=== PATIENT | male | born 1990 | race Caucasian/White ===

== ENCOUNTER 2019-07-18 17:12 | Emergency (ER) | payer MEDICAID ==
[~2019-07-18] VITALS: Ht 172.7 cm; Wt 80.0 kg
[~2019-07-18 17:12] MED LIST: ALB0.5UD IH; ARIP15TA3 PO; CLON-528 PO; HYDR-4383 PO; LIDOcaine 1% W/epiNEPHrine 1:100,000 20ml vial ONE; QUET200T5 PO; SILV20CR13 TOP
[2019-07-18 17:15] VITALS: BP 145/88
[2019-07-18] MEDS ORDERED: PENI500T2 PO (19:07)
== END 2019-07-18 19:39 | disposition home or self-care (01) ==
LOC: ER 17:12
DX: K04.7 Periapical abscess without sinus (principal); J45.909 Unspecified asthma, uncomplicated; G89.29 Other chronic pain; F20.9 Schizophrenia, unspecified; M06.9 Rheumatoid arthritis, unspecified; F12.90 Cannabis use, unspecified, uncomplicated; F15.90 Other stimulant use, unspecified, uncomplicated; F10.99 Alcohol use, unspecified with unspecified alcohol-induced disorder; Z86.14 Personal history of Methicillin resistant Staphylococcus aureus infection; Z98.890 Other specified postprocedural states; Z59.0 Homelessness; Z79.899 Other long term (current) drug therapy; Y90.9 Presence of alcohol in blood, level not specified
CPT/HCPCS: 41800; 99283

== ENCOUNTER 2020-10-13 18:05 | Emergency (ER) | payer MEDICAID ==
[~2020-10-13] VITALS: Ht 172.7 cm; Wt 65.1 kg
[~2020-10-13 18:05] MED LIST changes: -LIDOcaine 1% W/epiNEPHrine 1:100,000 20ml vial ONE
[2020-10-13 18:15] VITALS: BP 125/85
[2020-10-13] MEDS ORDERED: sulfamethoxazole/trimethoprim DS (800/160mg) tablet PO ONE (19:25)
[2020-10-13] MEDS ORDERED: cephalexin 250mg capsule PO ONE (19:25)
[2020-10-13] MEDS ORDERED: SULF1TAB49 PO (19:36)
[2020-10-13] MEDS ORDERED: CEPH750C9 PO (19:36)
== END 2020-10-13 19:45 | disposition home or self-care (01) ==
LOC: ER 18:05
DX: L03.116 Cellulitis of left lower limb (principal); J45.909 Unspecified asthma, uncomplicated; G89.29 Other chronic pain; F20.9 Schizophrenia, unspecified; F12.90 Cannabis use, unspecified, uncomplicated; F15.90 Other stimulant use, unspecified, uncomplicated; Z86.14 Personal history of Methicillin resistant Staphylococcus aureus infection; Z98.890 Other specified postprocedural states; Z72.89 Other problems related to lifestyle; Z59.0 Homelessness; Z79.2 Long term (current) use of antibiotics; Z79.899 Other long term (current) drug therapy
CPT/HCPCS: 10060; 99283

== ENCOUNTER 2020-11-10 20:47 | Emergency (ER) | payer MEDICAID ==
[~2020-11-10] VITALS: Ht 172.7 cm; Wt 59.1 kg
[~2020-11-10 20:47] MED LIST changes: +CEPH750C9 PO
[2020-11-10] MEDS ORDERED: DOXY100C2 PO (22:50)
[2020-11-10] MEDS ORDERED: ibuprofen tablet 400 MG TABLET PO ONE (22:50)
[2020-11-10 22:58] VITALS: BP 132/98
== END 2020-11-10 23:00 | disposition home or self-care (01) ==
LOC: ER 20:48
DX: M79.641 Pain in right hand (principal); M79.89 Other specified soft tissue disorders; J45.909 Unspecified asthma, uncomplicated; G89.29 Other chronic pain; F20.9 Schizophrenia, unspecified; F12.90 Cannabis use, unspecified, uncomplicated; F15.90 Other stimulant use, unspecified, uncomplicated; Z98.890 Other specified postprocedural states; Z86.14 Personal history of Methicillin resistant Staphylococcus aureus infection; Z72.89 Other problems related to lifestyle; Z59.0 Homelessness; Z79.2 Long term (current) use of antibiotics; Z79.899 Other long term (current) drug therapy
CPT/HCPCS: 99283

== ENCOUNTER 2021-04-27 03:28 | Emergency (ER) | payer MEDICAID ==
[~2021-04-27] VITALS: Ht 172.7 cm; Wt 59.1 kg
[2021-04-27] MEDS ORDERED: SULF1TAB49 PO (04:49)
[2021-04-27] MEDS ORDERED: ondansetron 4mg rapidly disintigrating tab PO ONE (04:50)
[2021-04-27] MEDS ORDERED: sulfamethoxazole/trimethoprim DS (800/160mg) tablet PO ONE (04:50)
[2021-04-27 05:21] VITALS: BP 137/68
== END 2021-04-27 05:23 | disposition home or self-care (01) ==
LOC: ER 03:29
DX: L03.116 Cellulitis of left lower limb (principal); J45.909 Unspecified asthma, uncomplicated; Z87.81 Personal history of (healed) traumatic fracture; F12.10 Cannabis abuse, uncomplicated; F15.10 Other stimulant abuse, uncomplicated; Z79.899 Other long term (current) drug therapy
CPT/HCPCS: 99283

== ENCOUNTER 2021-04-29 20:21 | Emergency (ER) | payer MEDICAID ==
[~2021-04-29] VITALS: Ht 172.7 cm; Wt 59.0 kg
[~2021-04-29 20:21] MED LIST changes: +SULF1TAB49 PO
[2021-04-29 20:32] VITALS: BP 128/74
== END 2021-04-30 00:19 | disposition left against medical advice (07) ==
LOC: ER 20:23
DX: Z53.21 Procedure and treatment not carried out due to patient leaving prior to being seen by health care provider (principal)

== ENCOUNTER 2022-01-11 19:20 | Inpatient (IN) | payer MEDICAID ==
[~2022-01-11] VITALS: Ht 172.7 cm; Wt 68.2 kg
[~2022-01-11 19:20] MED LIST changes: -SULF1TAB49 PO
[2022-01-11] MEDS ORDERED: ketorolac tromethamine 15mg/ml inj. IV ONE (19:50)
[2022-01-11] MEDS ORDERED: acetaminophen 325mg tablet PO ONE (19:50)
[2022-01-11] MEDS ORDERED: normal saline 1000ML IV soln IV ONE (19:50)
--- NOTE | 2022-01-11 20:03 | NUR ---
Pt to CT. [place], no impending distress. PIV site c/d/i s complication
[2022-01-11 20:04] LABS: BASOPHILS % (AUTO) 0.1 % (0-1); EOSINOPHILS % (AUTO) 0.1 % (0-6); HEMATOCRIT 38.4 % (42.0-52.0); LYMPHOCYTES # (AUTO) 0.5 X10'3 (1.1-4.8); LYMPHOCYTES % (AUTO) 3.6 % (21-51); MEAN CORPUSCULAR HEMOGLOBIN 30.5 PG (27.0-31.0); MEAN CORPUSCULAR HGB CONC 33.9 g/dL (33.0-36.5); MEAN CORPUSCULAR VOLUME 89.9 FL (78-98); MEAN PLATELET VOLUME 8.6 FL (7.4-10.4); MONOCYTES % (AUTO) 7.1 % (2-12); NEUTROPHILS # (AUTO) 12.1 X10'3 (1.8-7.7); NEUTROPHILS % (AUTO) 89.1 % (42-75); PLATELET COUNT 233 X10'3 (140-440); RED BLOOD COUNT 4.27 X10'6 (4.70-6.10); RED CELL DISTRIBUTION WIDTH 13.6 % (11.5-14.5); WHITE BLOOD COUNT 13.6 X10'3 (4.5-11.0)
[2022-01-11 20:18] LABS: ALANINE AMINOTRANSFERASE 22 U/L (12-78); ALBUMIN 3.7 G/DL (3.4-5.0); ALKALINE PHOSPHATASE 58 IU/L (46-116); ANION GAP 7 (8-16); ASPARTATE AMINO TRANSFERASE 17 U/L (10-37); BILIRUBIN,TOTAL 0.7 MG/DL (0.1-1.0); BLOOD UREA NITROGEN 14 MG/DL (7-18); BUN/CREATININE RATIO 12.7 (5.4-32.0); CALCIUM 8.3 MG/DL (8.5-10.1); CHLORIDE 103 MMOL/L (99-107); GLUCOSE 123 MG/DL (70-104); POTASSIUM 3.6 MMOL/L (3.5-5.1); SODIUM 138 MMOL/L (135-145); TOTAL CARBON DIOXIDE 28.4 MMOL/L (24-32); TOTAL PROTEIN 7.4 G/DL (6.4-8.2); eGFR 77 ML/MIN
[2022-01-11 20:20] LABS: D-DIMER 0.22 MG/L FEU (0-0.50)
[2022-01-11 20:30] LABS: CKMB RELATIVE INDEX 1.4 RATIO (0-2.5); CREATINE KINASE 125 U/L (39-308); ETHANOL < 0.010 GM/DL (0.0-0.010); MAGNESIUM 1.7 MG/DL (1.5-2.4)
--- NOTE | 2022-01-11 21:02 | NUR ---
Pt pink, alert, no acute/resp distress. Bed in lowest position, wheels locked, rail 2/2 up. Pt laying supine. Pt able to reposition self prn. PIV site c/d/i s complicaiton or s/s hematoma or infiltration
[2022-01-11] MEDS ORDERED: CefTRIAXone 2gm/NS 100ml IVPB 100 ML IV ONE (21:10)
[2022-01-11 21:24] LABS: LACTIC SEPSIS 1.8 MMOL/L (0.4-2.0)
[2022-01-11] MEDS ORDERED: magnesium Cl slow-release 64mg tablet PO PRN (21:30)
[2022-01-11] MEDS ORDERED: magnesium hydroxide 30ml (MOM) UD suspension PO PRN (21:30)
[2022-01-11] MEDS ORDERED: normal saline 1000ml 1,000 ML IV SCH (21:30)
[2022-01-11] MEDS ORDERED: potassium CL 10mEq/100ml bag 100 ML IV PRN (21:30)
[2022-01-11] MEDS ORDERED: mag hydrox/Alum hydrox/simeth 30ml oral suspension PO PRN (21:30)
[2022-01-11] MEDS ORDERED: magnesium 2GM in 50ml NS 50 ML IV PRN (21:30)
[2022-01-11] MEDS ORDERED: potassium Cl 20 mEq SR tablet PO PRN ×2 (21:30)
[2022-01-11] MEDS ORDERED: magnesium 4gm in 100ml NS 100 ML IV PRN (21:30)
[2022-01-11] MEDS ORDERED: acetaminophen 325mg tablet PO PRN ×2 (21:30)
[2022-01-11] MEDS ORDERED: albuterol 2.5 MG/3 ML nebule NEB PRN (21:35)
[2022-01-11] MEDS: ondansetron/PF 4mg/2ml inj IV PRN (23:26)
[2022-01-11] MEDS: morphine 2 MG/ML inj. syringe IV PRN (23:28)
--- NOTE | 2022-01-11 23:29 | NUR ---
Pt medicated IV pain meds and Zofran versus PO pain meds due to n/v. PIV site c/d/i s complication or adverse reaction. Bed in lowest position, wheels locked. CM, NIBP, Pulse Ox in place. Pt laying supine, able to reposition self prn.
[2022-01-12] VITALS (7 sets, daily range): BP systolic 88–129; BP diastolic 50–85
--- NOTE | 2022-01-12 01:00 | NUR ---
Paged Pt doc for continued tachycardia. Advised me she will order Cardizem.
[2022-01-12] MEDS ORDERED: diltiazem-NS 100mg/100ml 100 ML IV SCH (02:00)
--- NOTE | 2022-01-12 02:00 | NUR ---
Paged in house doc to remind to order cardizem for tachycardia.
--- NOTE | 2022-01-12 03:06 | NUR ---
Pt pink, alert, no acute/resp distress. Bed in lowest position, wheels locked, rail 2/2 up. Pt laying supine. Pt able to reposition self prn. PIV site c/d/i s complicaiton or s/s hematoma or infiltration. Cardizem infusing as ordered.
--- NOTE | 2022-01-12 03:30 | NUR ---
Pt [place], no acute/resp distress. Pt remains tachy. PIV site c/d/i s complication.
[2022-01-12 04:59] LABS: BASOPHILS % (AUTO) 0.1 % (0-1); EOSINOPHILS % (AUTO) 0 % (0-6); HEMATOCRIT 35.3 % (42.0-52.0); HEMOGLOBIN 12.1 g/dl (14.0-17.9); LYMPHOCYTES # (AUTO) 0.8 X10'3 (1.1-4.8); MEAN CORPUSCULAR HEMOGLOBIN 30.6 PG (27.0-31.0); MEAN CORPUSCULAR HGB CONC 34.2 g/dL (33.0-36.5); MEAN CORPUSCULAR VOLUME 89.5 FL (78-98); MONOCYTES # (AUTO) 1.5 X10'3 (0-0.9); MONOCYTES % (AUTO) 9.9 % (2-12); NEUTROPHILS # (AUTO) 12.8 X10'3 (1.8-7.7); PLATELET COUNT 198 X10'3 (140-440); RED BLOOD COUNT 3.94 X10'6 (4.70-6.10); RED CELL DISTRIBUTION WIDTH 13.4 % (11.5-14.5); WHITE BLOOD COUNT 15.1 X10'3 (4.5-11.0)
--- NOTE | 2022-01-12 05:01 | NUR ---
STEWART Chaudhry May titrate Cardizem despite order stating must contact doctor to titrate. Pt Cardizem at this time is titrated at 10mg/hr. PIV site c/d/i s complication or adverse. Bed in lowest position, rails 2/2 up, wheels locked, call cruz in reach. No goal parameters given heart rate, or Blood Pressure.
[2022-01-12 05:02] LABS: ALANINE AMINOTRANSFERASE 17 U/L (12-78); ALBUMIN 2.8 G/DL (3.4-5.0); ALBUMIN/GLOBULIN RATIO 0.9 (1.1-1.5); ALKALINE PHOSPHATASE 45 IU/L (46-116); ANION GAP 9 (8-16); ASPARTATE AMINO TRANSFERASE 14 U/L (10-37); BILIRUBIN,TOTAL 0.6 MG/DL (0.1-1.0); BLOOD UREA NITROGEN 15 MG/DL (7-18); BUN/CREATININE RATIO 14.2 (5.4-32.0); CALCIUM 7.1 MG/DL (8.5-10.1); CHLORIDE 104 MMOL/L (99-107); CREATININE 1.06 MG/DL (0.60-1.10); GLUCOSE 103 MG/DL (70-104); POTASSIUM 3.3 MMOL/L (3.5-5.1); SODIUM 136 MMOL/L (135-145); TOTAL CARBON DIOXIDE 23.3 MMOL/L (24-32); eGFR 80 ML/MIN
--- NOTE | 2022-01-12 05:23 | NUR ---
See IV drip documentation for titration.
--- NOTE | 2022-01-12 05:30 | NUR ---
Paged Dr. Chaudhry to advise Ashley camacho out and pt remains tachy.
[2022-01-12] MEDS ORDERED: atenolol 25mg tablet PO ONE (06:00)
--- NOTE | 2022-01-12 06:04 | NUR ---
No acute/resp distress. PIV site c/d/i s complication or adverse reaction. Bed in lowest position, wheels locked. CM, NIBP, Pulse Ox in place. Pt laying supine, able to reposition self prn. Hand off report to day shift RN.
--- NOTE | 2022-01-12 06:44 | NUR ---
attempted to call report to PCU, no assigned RN at this time.
--- NOTE | 2022-01-12 06:44 | NUR ---
Dr. Chaudhry made aware about patient's bp 94/62mmhg, held cardizem drip and atenolol held.Dr. Chaudhry ok'd.ordered to administer atenolol 12.5mg when sbp greater than 100.
[2022-01-12] MEDS ORDERED: CefTRIAXone 2gm/NS 100ml IVPB 100 ML IV SCH (08:00)
[2022-01-12] MEDS: K and/or MAG REPLACEMENT MC SCH ×2 (08:00→20:00)
[2022-01-12] MEDS ORDERED: doxycycline inj 100 MG in normal saline 100ml IV soln 100 ML IV SCH (08:00)
[2022-01-12] MEDS: nicotine 21mg patch - 24 hr TD SCH (08:44)
[2022-01-12] MEDS: morphine 2 MG/ML inj. syringe IV PRN (08:44)
--- NOTE | 2022-01-12 08:55 | NUR ---
Paged Dr. Serra U Stefano RN ext [phone]. RE: Hilton Yuen. Patient already here from ER. We got positive blood culture result today. Patient already on Rocephin, Vibramycin, and Zithromax. SBP still on the o0's HR 106-107. He has no maintainance IV fluid
--- NOTE | 2022-01-12 08:59 | NUR ---
skin care technician paged
[2022-01-12] MEDS: azithromycin/NS 500mg/250ml 250 ML IV SCH (09:55)
[2022-01-12] MEDS ORDERED: normal saline 1000ml 1,000 ML IV ONE (10:20)
--- NOTE | 2022-01-12 11:01 | NUR ---
Paged Dr. Serra Message: PCU Stefano QUAN ext [phone] RE: Hilton Yuen. Patient unable to pee, has pressure on lower abdomen. Bladder scan 385ml, do you want me to do straight cath or orantes?
[2022-01-12] MEDS: heparin, porcine 5000 units/ml vial SQ SCH ×2 (11:07→19:37)
[2022-01-12 11:33] LABS: CLARITY,URINE CLEAR (Clear); COLOR,URINE YELLOW (Yellow); GLUCOSE, URINE NEGATIVE (Neg); KETONES,URINE TRACE mg/dl (Neg); LEUKOCYTE ESTERASE ,URINE NEGATIVE (Neg); NITRITES, URINE NEGATIVE (Neg); OCCULT BLOOD,URINE NEGATIVE (Neg); PROTEIN,URINE NEGATIVE (Neg); UROBILINOGEN,URINE 0.2 E.U/dL (0.2-1.0)
[2022-01-12 11:38] LABS: UA COLLECTION TYPE CLN CATCH MIDSTREAM
[2022-01-12 11:45] LABS: URINE AMPHETAMINE SCREEN POSITIVE (Neg); URINE BARBITUATE SCREEN NEGATIVE (Neg); URINE BENZODIAZEPINES SCREEN NEGATIVE (Neg); URINE CANNABINOID SCREEN POSITIVE (Neg); URINE COCAINE SCREEN NEGATIVE (Neg); URINE METHADONE SCREEN NEGATIVE (Neg); URINE OPIATE SCREEN POSITIVE (Neg); URINE PHENCYCLIDINE SCREEN NEGATIVE (Neg)
[2022-01-12] MEDS ORDERED: NO HOME MEDS (11:49)
[2022-01-12] MEDS: normal saline 1000ml 1,000 ML IV SCH ×2 (12:01→20:20)
[2022-01-12] MEDS: piperacillin/tazo 3.375gm/50ml 50 ML IV SCH ×2 (12:01→17:10)
[2022-01-12] MEDS ORDERED: ipratropium/albuterol 3ml nebule NEB PRN (12:10)
[2022-01-12] MEDS ORDERED: methylPREDNISolone sod succ 125mg/2ml vial IV ONE (12:10)
[2022-01-12] MEDS: ondansetron/PF 4mg/2ml inj IV PRN (12:27)
--- NOTE | 2022-01-12 12:34 | NUR ---
I've been asking pharmacy to give me the Vibramycin since this am but never came. Order history showing it's discontinued status
[2022-01-12] MEDS ORDERED: iohexol 350MG/ML 100ml bottle IV ONE (12:39)
--- NOTE | 2022-01-12 13:12 | NUR ---
Paged RT regarding ABG order
[2022-01-12 13:46] LABS: ABG BASE EXCESS -4.3 mmol/L (-2.0-2.0); ABG HCO3 19.2 mmol/L (22.0-26.0); ABG OXYGEN SATURATION 92.4 % (94-97); ABG PCO2 (T) 30.5 mmHg (35.0-48.0); ABG PO2 (T) 62.7 mmHg (75.0-100.0); ALLEN'S TEST POSITIVE; FCOHb 0.3 % (0.0-3.9); FLOW 0 L/min; FMetHb 0.3 % (0.0-1.5); FO2Hb 91.8 % (94-97); TOTAL HEMOGLOBIN 12.7 G/dl (14.0-18.0)
--- NOTE | 2022-01-12 14:03 | NUR ---
Paged Dr. Serra Message: [facility] Stefano QUAN ext [phone] RE: Hilton Yuen. ABG results: pH 7.416 pCO2 30.5 pO2 62.7 HCO3 19.2. CTA chest result in
[2022-01-12] MEDS: ipratropium/albuterol 3ml nebule NEB SCH ×3 (15:00→23:39)
[2022-01-12] MEDS: HYDROcodone/acetaminophen 5mg/325mg tablet PO PRN (19:37)
[2022-01-12] MEDS: methylPREDNISolone sod succ/PF 40mg inj. IV SCH (23:43)
[2022-01-13] MEDS: methylPREDNISolone sod succ/PF 40mg inj. IV SCH ×4 (00:22→23:56)
[2022-01-13] MEDS: piperacillin/tazo 3.375gm/50ml 50 ML IV SCH ×4 (00:23→23:55)
[2022-01-13 02:00] VITALS: BP 107/55
[2022-01-13] MEDS: ipratropium/albuterol 3ml nebule NEB SCH ×7 (03:00→23:00)
[2022-01-13] MEDS: HYDROcodone/acetaminophen 5mg/325mg tablet PO PRN ×3 (05:56→18:57)
[2022-01-13 06:00] VITALS: BP 104/53
[2022-01-13] MEDS: normal saline 1000ml 1,000 ML IV SCH ×2 (06:20→16:27)
[2022-01-13 06:50] LABS: ALANINE AMINOTRANSFERASE 17 U/L (12-78); ALBUMIN 2.4 G/DL (3.4-5.0); ALBUMIN/GLOBULIN RATIO 0.6 (1.1-1.5); ALKALINE PHOSPHATASE 53 IU/L (46-116); ANION GAP 8 (8-16); ASPARTATE AMINO TRANSFERASE 14 U/L (10-37); BASOPHILS % (AUTO) 0 % (0-1); BILIRUBIN,TOTAL 0.2 MG/DL (0.1-1.0); BLOOD UREA NITROGEN 16 MG/DL (7-18); BUN/CREATININE RATIO 15.4 (5.4-32.0); CALCIUM 8.1 MG/DL (8.5-10.1); CHLORIDE 107 MMOL/L (99-107); CREATININE 1.04 MG/DL (0.60-1.10); EOSINOPHILS % (AUTO) 0 % (0-6); GLUCOSE 185 MG/DL (70-104); HEMATOCRIT 32.3 % (42.0-52.0); HEMOGLOBIN 10.9 g/dl (14.0-17.9); LYMPHOCYTES # (AUTO) 0.8 X10'3 (1.1-4.8); LYMPHOCYTES % (AUTO) 4.2 % (21-51); MAGNESIUM 2.3 MG/DL (1.5-2.4); MEAN CORPUSCULAR HEMOGLOBIN 30.7 PG (27.0-31.0); MEAN CORPUSCULAR HGB CONC 33.9 g/dL (33.0-36.5); MEAN CORPUSCULAR VOLUME 90.5 FL (78-98); MEAN PLATELET VOLUME 9.2 FL (7.4-10.4); MONOCYTES # (AUTO) 0.9 X10'3 (0-0.9); MONOCYTES % (AUTO) 4.7 % (2-12); NEUTROPHILS # (AUTO) 17.4 X10'3 (1.8-7.7); NEUTROPHILS % (AUTO) 91.1 % (42-75); PHOSPHORUS 2.5 MG/DL (2.3-4.5); PLATELET COUNT 202 X10'3 (140-440); RED BLOOD COUNT 3.56 X10'6 (4.70-6.10); RED CELL DISTRIBUTION WIDTH 13.7 % (11.5-14.5); SODIUM 140 MMOL/L (135-145); TOTAL CARBON DIOXIDE 25.4 MMOL/L (24-32); TOTAL PROTEIN 6.3 G/DL (6.4-8.2); WHITE BLOOD COUNT 19.1 X10'3 (4.5-11.0); eGFR 82 ML/MIN
[2022-01-13] MEDS: K and/or MAG REPLACEMENT MC SCH ×2 (08:00→20:00)
[2022-01-13] MEDS: nicotine 21mg patch - 24 hr TD SCH (08:00)
[2022-01-13] MEDS: azithromycin/NS 500mg/250ml 250 ML IV SCH (08:00)
[2022-01-13] MEDS: heparin, porcine 5000 units/ml vial SQ SCH ×2 (08:00→20:19)
--- NOTE | 2022-01-13 08:00 | NUR ---
Previously administered Nicotine patch not found
--- NOTE | 2022-01-13 10:28 | NUR ---
technical education teacher reporting accelerated junctional; SA
[2022-01-13 11:00] VITALS: BP 105/57
[2022-01-13 17:00] VITALS: BP 111/59
[2022-01-13 18:30] VITALS: BP 131/70
[2022-01-13 22:00] VITALS: BP 111/64
[2022-01-14 02:00] VITALS: BP 102/59
[2022-01-14] MEDS: normal saline 1000ml 1,000 ML IV SCH ×3 (02:20→21:57)
[2022-01-14] MEDS: ipratropium/albuterol 3ml nebule NEB SCH ×6 (03:00→22:52)
--- NOTE | 2022-01-14 06:30 | NUR ---
Problems reprioritized. Patient report given, questions answered & plan of care reviewed with KWAME. Addendum: 01/14/22 at 0630 by Shun Adam RN Amended: Links added.
--- NOTE | 2022-01-14 06:42 | NUR ---
Patient in room PCU 3015. I have received report from chris QUAN and had the opportunity to ask questions and assume patient care.
[2022-01-14 06:51] LABS: HEMOGLOBIN 10.6 g/dl (14.0-17.9); MEAN CORPUSCULAR HEMOGLOBIN 30.9 PG (27.0-31.0)
[2022-01-14 06:54] LABS: BASOPHILS % (AUTO) 0 % (0-1); EOSINOPHILS % (AUTO) 0 % (0-6); HEMATOCRIT 31.2 % (42.0-52.0); LYMPHOCYTES # (AUTO) 0.9 X10'3 (1.1-4.8); MEAN CORPUSCULAR HGB CONC 34.1 g/dL (33.0-36.5); MEAN CORPUSCULAR VOLUME 90.8 FL (78-98); MEAN PLATELET VOLUME 9.1 FL (7.4-10.4); MONOCYTES # (AUTO) 0.5 X10'3 (0-0.9); MONOCYTES % (AUTO) 3.7 % (2-12); NEUTROPHILS # (AUTO) 12.7 X10'3 (1.8-7.7); NEUTROPHILS % (AUTO) 90.3 % (42-75); PLATELET COUNT 210 X10'3 (140-440); RED BLOOD COUNT 3.43 X10'6 (4.70-6.10); WHITE BLOOD COUNT 14.1 X10'3 (4.5-11.0)
[2022-01-14 07:00] VITALS: BP 134/92
[2022-01-14] MEDS: K and/or MAG REPLACEMENT MC SCH ×2 (08:00→20:00)
[2022-01-14 08:17] LABS: ALANINE AMINOTRANSFERASE 104 U/L (12-78); ALBUMIN 2.3 G/DL (3.4-5.0); ALBUMIN/GLOBULIN RATIO 0.6 (1.1-1.5); ALKALINE PHOSPHATASE 63 IU/L (46-116); ANION GAP 9 (8-16); ASPARTATE AMINO TRANSFERASE 69 U/L (10-37); BILIRUBIN,TOTAL 0.2 MG/DL (0.1-1.0); BLOOD UREA NITROGEN 13 MG/DL (7-18); BUN/CREATININE RATIO 14.4 (5.4-32.0); CALCIUM 8.1 MG/DL (8.5-10.1); CHLORIDE 107 MMOL/L (99-107); GLUCOSE 137 MG/DL (70-104); MAGNESIUM 1.7 MG/DL (1.5-2.4); POTASSIUM 4.2 MMOL/L (3.5-5.1); SODIUM 140 MMOL/L (135-145); TOTAL CARBON DIOXIDE 24.1 MMOL/L (24-32); TOTAL PROTEIN 6.3 G/DL (6.4-8.2); eGFR > 90 ML/MIN
[2022-01-14] MEDS: azithromycin/NS 500mg/250ml 250 ML IV SCH (08:49)
[2022-01-14] MEDS: methylPREDNISolone sod succ/PF 40mg inj. IV SCH ×4 (08:52→19:48)
[2022-01-14] MEDS: heparin, porcine 5000 units/ml vial SQ SCH ×2 (08:52→19:50)
[2022-01-14] MEDS: nicotine 21mg patch - 24 hr TD SCH (08:56)
[2022-01-14] MEDS: HYDROcodone/acetaminophen 5mg/325mg tablet PO PRN ×2 (09:14→15:19)
[2022-01-14] MEDS: ondansetron/PF 4mg/2ml inj IV PRN (09:14)
[2022-01-14] MEDS ORDERED: iohexol 300mg/ml 100ml inj. ONE (09:34)
[2022-01-14] MEDS: piperacillin/tazo 3.375gm/50ml 50 ML IV SCH ×3 (10:39→23:41)
[2022-01-14 11:00] VITALS: BP 115/70
--- NOTE | 2022-01-14 11:44 | NUR ---
observed medication administration/reviewed physical assessment documentation for [facility] nursing resident Juju
--- NOTE | 2022-01-14 13:53 | NUR ---
patient very emotional at times arguing with partner over phone and later when partner came to visit . patient encouraged to lower voice . patient receptive . seen by DR Serra , patient has been threatning to leave, but appars to have changed his mind and will stay at this time. will continue to monitor Taken for CT.
[2022-01-14 15:00] VITALS: BP 92/63
--- NOTE | 2022-01-14 15:08 | NUR ---
patient became very upset wanting to leave Dr dotson paged. Then patient changed mind. RT paged for tmt and request to DR Dotson made for ativan . will continue to monitor
[2022-01-14] MEDS ORDERED: LORazepam 0.5 MG tablet PO PRN (17:25)
--- NOTE | 2022-01-14 18:28 | NUR ---
patient appeared much calamer following treatment and norco for pain. returned and patient and appeared to be calm. patient stated he was very grateful to staff to talk with him and encourage him to stay for care. bought a cake for staff!!! Resting comfortably at this time. Report given to Edmund QUAN
[2022-01-14 18:30] VITALS: BP 108/64
[2022-01-14] MEDS: levoFLOXACIN-Levaquin 750MG/D5 150 ML IV SCH (19:48)
[2022-01-14 22:00] VITALS: BP 101/53
[2022-01-15 02:00] VITALS: BP 162/67
[2022-01-15] MEDS: ipratropium/albuterol 3ml nebule NEB SCH (02:48)
[2022-01-15 05:43] LABS: BASOPHILS % (AUTO) 0.1 % (0-1); EOSINOPHILS % (AUTO) 0 % (0-6); HEMATOCRIT 30.6 % (42.0-52.0); HEMOGLOBIN 10.3 g/dl (14.0-17.9); LYMPHOCYTES # (AUTO) 1.1 X10'3 (1.1-4.8); MEAN CORPUSCULAR HEMOGLOBIN 30.6 PG (27.0-31.0); MEAN CORPUSCULAR HGB CONC 33.7 g/dL (33.0-36.5); MEAN CORPUSCULAR VOLUME 90.8 FL (78-98); MEAN PLATELET VOLUME 9.2 FL (7.4-10.4); MONOCYTES # (AUTO) 0.4 X10'3 (0-0.9); MONOCYTES % (AUTO) 4.7 % (2-12); NEUTROPHILS # (AUTO) 7.7 X10'3 (1.8-7.7); NEUTROPHILS % (AUTO) 83.2 % (42-75); PLATELET COUNT 218 X10'3 (140-440); RED BLOOD COUNT 3.37 X10'6 (4.70-6.10); RED CELL DISTRIBUTION WIDTH 14.1 % (11.5-14.5); WHITE BLOOD COUNT 9.2 X10'3 (4.5-11.0)
[2022-01-15 07:32] LABS: ALANINE AMINOTRANSFERASE 77 U/L (12-78); ALBUMIN 2.3 G/DL (3.4-5.0); ALBUMIN/GLOBULIN RATIO 0.6 (1.1-1.5); ALKALINE PHOSPHATASE 51 IU/L (46-116); ANION GAP 9 (8-16); ASPARTATE AMINO TRANSFERASE 24 U/L (10-37); BILIRUBIN,TOTAL 0.1 MG/DL (0.1-1.0); BLOOD UREA NITROGEN 17 MG/DL (7-18); BUN/CREATININE RATIO 19.8 (5.4-32.0); CALCIUM 8.4 MG/DL (8.5-10.1); CHLORIDE 108 MMOL/L (99-107); CREATININE 0.86 MG/DL (0.60-1.10); GLUCOSE 154 MG/DL (70-104); MAGNESIUM 1.8 MG/DL (1.5-2.4); PHOSPHORUS 3.7 MG/DL (2.3-4.5); POTASSIUM 4.2 MMOL/L (3.5-5.1); SODIUM 142 MMOL/L (135-145); TOTAL PROTEIN 6.2 G/DL (6.4-8.2); eGFR > 90 ML/MIN
--- NOTE | 2022-01-15 07:34 | NUR ---
Patient in room PCU 3015. I have received report from chris QUAN and had the opportunity to ask questions and assume patient care.
[2022-01-15 08:00] VITALS: BP 109/58
[2022-01-15] MEDS: K and/or MAG REPLACEMENT MC SCH (08:00)
[2022-01-15] MEDS: heparin, porcine 5000 units/ml vial SQ SCH (08:05)
[2022-01-15] MEDS: nicotine 21mg patch - 24 hr TD SCH (08:06)
[2022-01-15] MEDS: methylPREDNISolone sod succ/PF 40mg inj. IV SCH (08:07)
[2022-01-15] MEDS: levoFLOXACIN-Levaquin 750MG/D5 150 ML IV SCH (08:07)
[2022-01-15] MEDS: HYDROcodone/acetaminophen 5mg/325mg tablet PO PRN (08:14)
--- NOTE | 2022-01-15 08:48 | NUR ---
Initial: Pt admitted w/ RLL/RUL PNA, sepsis and COPD exacerbation per EMR. Currently on Regular diet w/ mostly 100% intake of meals. Will provide double protein w/ some meals to ensure increased protein needs are being met. LBM 01/14. Will continue to monitor and make recommendations as appropriate. Recs: 1. Continue Regular diet as tolerated 2. Double protein WB, smoothie WL 3. Bowel care per rx 4. Scaled wts this admit Addendum: 01/15/22 at [address] Amended: Links added.
[2022-01-15] MEDS: piperacillin/tazo 3.375gm/50ml 50 ML IV SCH (09:32)
[2022-01-15] MEDS: ondansetron/PF 4mg/2ml inj IV PRN (09:32)
[2022-01-15] MEDS ORDERED: LACT1CAP26 PO (10:41)
[2022-01-15] MEDS ORDERED: AMOX-580 PO (10:41)
[2022-01-15] MEDS ORDERED: ALBU8.5H17 INH (10:41)
[2022-01-15 11:00] VITALS: BP 115/71
[2022-01-15] MEDS ORDERED: NICO-687 TOP (11:25)
--- NOTE | 2022-01-15 12:18 | NUR ---
Pt is stable for discharger per Dr. Serra orders. All discharge instructions reviewed with patient and all questions answered. New prescriptions sent electronically to pharmacy. Patient medications retrieved from pharmacy. PIV discontinued. property assessment monitor discontinued. Belongings collected and sent with patient. Mode of transportation was in a taxi cab, pt wheeled to [employer]. Addendum: 01/15/22 at 1458 by Teresa Randolph RN patients came instead of cab. Patient walked to [employer] and placed in truck with in stable condition.
== END 2022-01-15 13:57 | disposition home or self-care (01) | DRG 720 ==
LOC: ER 19:21 → ED HOLD 21:31 → PCU 3S 01-12 07:42
PROVIDERS: ADMIT Internal Medicine; ATTEND Family Medicine
PROC: B32T1ZZ Computerized Tomography (CT Scan) of Left Pulmonary Artery using Low Osmolar Contrast (ICD-10-PCS; principal; 2022-01-12)
PROC: B3201ZZ Computerized Tomography (CT Scan) of Thoracic Aorta using Low Osmolar Contrast (ICD-10-PCS; 2022-01-12)
PROC: B32S1ZZ Computerized Tomography (CT Scan) of Right Pulmonary Artery using Low Osmolar Contrast (ICD-10-PCS; 2022-01-12)
DX: A40.3 Sepsis due to Streptococcus pneumoniae (principal); J96.90 Respiratory failure, unspecified, unspecified whether with hypoxia or hypercapnia; R65.20 Severe sepsis without septic shock; J18.9 Pneumonia, unspecified organism; I42.7 Cardiomyopathy due to drug and external agent; J44.0 Chronic obstructive pulmonary disease with (acute) lower respiratory infection; I50.9 Heart failure, unspecified; R91.8 Other nonspecific abnormal finding of lung field; J44.1 Chronic obstructive pulmonary disease with (acute) exacerbation; F17.210 Nicotine dependence, cigarettes, uncomplicated; Z20.822 Contact with and (suspected) exposure to COVID-19; F15.20 Other stimulant dependence, uncomplicated; F20.9 Schizophrenia, unspecified; M06.9 Rheumatoid arthritis, unspecified; Z86.14 Personal history of Methicillin resistant Staphylococcus aureus infection; Z91.018 Allergy to other foods; Z59.00 Homelessness unspecified
CPT/HCPCS: 36415; 36600; 70450; 71045; 71260; 71275; 80053; 80305; 80320; 81003; 82140; 82550; 82553; 82803; 82948; 83605; 83735; 84100; 84145; 84484; 85018; 85025; 85379; 87040; 87077; 87081; 87186; 87635; 93005; 93306; 94640; 94760; 96361; 96365; 96375; 97116; 97161; 97530; 99285; C9803; G0378; J0456; J0696; J1644; J1885; J1956; J2270; J2405; J2543; J2920; J2930; J3490; J7030; Q9967

== ENCOUNTER 2023-08-21 09:05 | Emergency (ER) | payer MEDICAID ==
[~2023-08-21] VITALS: Ht 172.7 cm; Wt 88.0 kg
[~2023-08-21 09:05] MED LIST changes: -ALB0.5UD IH; +ALBU8.5H17 INH; -ARIP15TA3 PO; -CEPH750C9 PO; -CLON-528 PO; -HYDR-4383 PO; +LACT1CAP26 PO; -QUET200T5 PO; -SILV20CR13 TOP
[2023-08-21 09:06] VITALS: TEMP 99.6
[2023-08-21 09:32] LABS: BILIRUBIN,URINE NEGATIVE (Neg); CLARITY,URINE SLIGHTLY CLOUDY (Clear); COLOR,URINE YELLOW (Yellow); GLUCOSE, URINE NEGATIVE (Neg); KETONES,URINE NEGATIVE (Neg); LEUKOCYTE ESTERASE ,URINE NEGATIVE (Neg); NITRITES, URINE NEGATIVE (Neg); OCCULT BLOOD,URINE NEGATIVE (Neg); PROTEIN,URINE 30 mg/dl (Neg); UROBILINOGEN,URINE 0.2 E.U/dL (0.2-1.0)
[2023-08-21 09:40] LABS: UA COLLECTION TYPE CLN CATCH MIDSTREAM
[2023-08-21 09:41] LABS: MUCUS STRANDS MANY /LPF (Neg)
[2023-08-21 09:42] LABS: SQUAMOUS EPITHELIAL CELL,UR MODERATE /LPF (FEW)
[2023-08-21 09:44] LABS: TRANSITIONAL EPI CELLS,URINE MODERATE /HPF
[2023-08-21 09:45] LABS: RENAL CELLS, URINE FEW /HPF
[2023-08-21 09:46] LABS: AMORPHOUS URATES 1+; BACTERIA,URINE FEW /HPF (Neg)
[2023-08-21 09:48] LABS: FINE GRANULAR CAST 0-3 /LPF (NEGATIVE); HYALINE CASTS 0-3 /LPF (NEGATIVE); RBC,URINE 0-2 /HPF (0-2)
[2023-08-21 09:58] LABS: BASOPHILS % (AUTO) 0.5 % (0-1); EOSINOPHILS % (AUTO) 0 % (0-6); HEMATOCRIT 46.1 % (42.0-52.0); HEMOGLOBIN 15.7 g/dl (14.0-17.9); LYMPHOCYTES # (AUTO) 0.8 X10'3 (1.1-4.8); LYMPHOCYTES % (AUTO) 23.9 % (21-51); MEAN CORPUSCULAR HEMOGLOBIN 31.5 PG (27.0-31.0); MEAN CORPUSCULAR VOLUME 92.5 FL (78-98); MEAN PLATELET VOLUME 9.9 FL (7.4-10.4); MONOCYTES # (AUTO) 0.5 X10'3 (0-0.9); MONOCYTES % (AUTO) 16.4 % (2-12); NEUTROPHILS # (AUTO) 1.9 X10'3 (1.8-7.7); NEUTROPHILS % (AUTO) 59.2 % (42-75); PLATELET COUNT 106 X10'3 (140-440); RED BLOOD COUNT 4.99 X10'6 (4.70-6.10); WHITE BLOOD COUNT 3.3 X10'3 (4.5-11.0)
[2023-08-21 10:38] LABS: ALANINE AMINOTRANSFERASE 16 U/L (12-78); ALBUMIN 3.6 G/DL (3.4-5.0); ALBUMIN/GLOBULIN RATIO 0.8 (1.1-1.5); ALKALINE PHOSPHATASE 57 IU/L (46-116); ANION GAP 6 (8-16); ASPARTATE AMINO TRANSFERASE 21 U/L (10-37); BILIRUBIN,TOTAL 0.2 MG/DL (0.1-1.0); BLOOD UREA NITROGEN 16 MG/DL (7-18); BUN/CREATININE RATIO 13.8 (10.0-20.0); CALCIUM 7.7 MG/DL (8.5-10.1); CHLORIDE 97 MMOL/L (99-107); CREATININE 1.16 MG/DL (0.60-1.10); GLUCOSE 101 MG/DL (70-104); LIPASE 43 U/L (16-77); POTASSIUM 4.1 MMOL/L (3.5-5.1); SODIUM 132 MMOL/L (135-145); TOTAL CARBON DIOXIDE 28.6 MMOL/L (24-32); TOTAL PROTEIN 7.9 G/DL (6.4-8.2); eCRCL 86 ML/MIN; eGFR 72 ML/MIN
[2023-08-21] MEDS ORDERED: ondansetron/PF 4mg/2ml inj IV ONE (11:10)
[2023-08-21] MEDS ORDERED: normal saline 1000ML IV soln IVB ONE (11:10)
[2023-08-21] MEDS ORDERED: OMEP40CA21 PO (11:14)
[2023-08-21] MEDS ORDERED: ONDA4TAB12 PO (11:14)
[2023-08-21 13:17] VITALS: BP 105/55; PULSE 97; RESP 14; O2SAT 96
== END 2023-08-21 13:22 | disposition home or self-care (01) ==
LOC: ER 09:05
DX: K62.5 Hemorrhage of anus and rectum (principal); R11.2 Nausea with vomiting, unspecified; R19.7 Diarrhea, unspecified; R10.10 Upper abdominal pain, unspecified; J45.909 Unspecified asthma, uncomplicated; G89.29 Other chronic pain; F20.9 Schizophrenia, unspecified; F12.90 Cannabis use, unspecified, uncomplicated; F15.90 Other stimulant use, unspecified, uncomplicated; F17.210 Nicotine dependence, cigarettes, uncomplicated; Z86.14 Personal history of Methicillin resistant Staphylococcus aureus infection; Z98.890 Other specified postprocedural states; Z59.00 Homelessness unspecified; Z91.018 Allergy to other foods; Z79.899 Other long term (current) drug therapy
CPT/HCPCS: 36415; 80053; 81001; 83690; 85025; 87077; 87088; 96361; 96374; 99285; J2405; J7030

== ENCOUNTER 2023-12-10 03:39 | Emergency (ER) | payer MEDICAID ==
[~2023-12-10] VITALS: Ht 172.7 cm; Wt 60.0 kg
[~2023-12-10 03:39] MED LIST changes: +ONDA4TAB12 PO
[2023-12-10] MEDS ORDERED: TRIA15CR61 TOP (04:14)
[2023-12-10] MEDS ORDERED: ASPI-1264 PO (04:14)
[2023-12-10 04:26] VITALS: BP 105/63; PULSE 95; RESP 14; TEMP 98.8; O2SAT 98
== END 2023-12-10 04:30 | disposition home or self-care (01) ==
LOC: ER 03:40
DX: R21 Rash and other nonspecific skin eruption (principal); J45.909 Unspecified asthma, uncomplicated; F12.90 Cannabis use, unspecified, uncomplicated; F15.90 Other stimulant use, unspecified, uncomplicated; Z91.018 Allergy to other foods; Z79.82 Long term (current) use of aspirin; Z79.899 Other long term (current) drug therapy
CPT/HCPCS: 99283

== ENCOUNTER 2025-01-19 14:18 | Emergency (ER) | payer MEDICAID ==
[~2025-01-19] VITALS: Ht 172.7 cm; Wt 60.0 kg
[~2025-01-19 14:18] MED LIST changes: +ONDA-243 PO; -ONDA4TAB12 PO
[2025-01-19 14:22] VITALS: BP 126/70; PULSE 90; RESP 18; TEMP 97.8; O2SAT 98
--- NOTE | 2025-01-19 14:36 | ELECTROCARDIOGRAPH REPORT ---
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 Juan Carlos Crowder Measurements Intervals [place] Rate: 76 P: 80 NC: 122 QRS: 81 QRSD: 92 T: 64 QT: 369 QTc: 415 Interpretive Statements Sinus rhythm Consider left atrial enlargement Consider left ventricular hypertrophy Electronically Signed On 01-19-2025 18:18:[address] Juan Carlos Crowder Please click the below link to view image of tracing.
--- NOTE | 2025-01-19 16:33 | Physician Documentation ---
History of Present Illness ~ Chief Complaint: Anxiety Stated Complaint: CP ANXIETY Primary Medical Doctor: DR. JAMES CASH [facility] This 34-year-old male presents with left-sided chest wall pain, patient reports point tenderness to his left chest just lateral to his sternum near his left nipple, patient reports the pain is worse with deep breathing. Patient reports chest wall pain began after some recent emotional distress after his significant other . Tetanus within 5 Years?: No Allergies: Coded Allergies: mushroom (Unverified Allergy, Unknown, 01/12/22) onion (Unverified Allergy, Unknown, 01/12/22) Active Prescriptions See Medication Reconciliation Form. Medication Reconciliation Scheduled Lactobacillus Rhamnosus (Culturelle), 1 EACH PO BID Scheduled PRN Albuterol Sulfate (Proair Hfa), 2 PUFFS INH Q4HPRN PRN for wheezing ONDANSETRON ODT 4mg tablet (Ondansetron Odt), 1 TABLET PO Q6H PRN for nausea/vomiting Past Medical History Past Medical History: Asthma, Pneumonia, GI Bleed, Chronic Pain, Extremity Fracture, Rheumatoid Arthritis, MRSA Abscess, Schizophrenia Past Surgical History: orthopedic surgeries Alcohol Use: Sober Drug Use: marijuana, methamphetamine Lives In: Homeless, Other Occupation: disabled Physical Exam Vital Signs: Temperature: 97.8, Source: Temporal, Heart Rate: 90, Respiratory Rate: 18, BP: 126/70, Pulse Oximetry: 98, Weight: 60.000 Physical Exam VITALS: Reviewed and as above. GENERAL: Alert, nontoxic appearing, no apparent distress. RESPIRATORY: No increased work of breathing, no respiratory distress, speaking in full clear sentences CHEST: Tenderness to palpation just lateral to left sternal border near left nipple CV: Regular rate and rhythm no murmur Progress Results/Orders Results/Orders Orders - MONTSERRAT CHARLES AUDIO/VISUAL MANAGER Chest,Two Views (01/19/25 16:48) Completed Orders - MONTSERRAT CHARLES AUDIO/VISUAL MANAGER Chest,Two Views (01/19/25 16:48) Vital Signs 01/19/25 14:22 Temp 97.8 Pulse 90 Resp 18 B/P (MAP) 126/70 Pulse Ox 98 Medical Decision Making Findings MSE performed in triage and patient returned to ED lobby by nursing staff Differential Dx:Considerations: Include: Chest wall contusion, Myocardial contusion, Pneumothorax, Pulmonary contusion, Rib fracture, Other (PA) Departure Disposition: 07 LEFT AWOL/ELOPED Impression: Primary Impression: Chest wall pain Referrals: NO PRIMARY CARE PROVIDER (PCP) Signature Scribe Signature: No scribe Attestation: The note accurately reflects work and decisions made by me.SADI Bishop 01/20/25 22:42 MONTSERRAT CHARLES Jan 19, 2025 16:33
--- NOTE | 2025-01-19 17:05 | RADIOLOGY REPORT ---
DI CHEST,TWO VIEWS CLINICAL HISTORY: Chest Wall Pain COMPARISON: None TECHNIQUE: Frontal and lateral view of the chest was obtained FINDINGS: Lines and Tubes: None Lungs: No focal consolidation. Pleura: No effusion. No pneumothorax. Cardiomediastinal contours: Unremarkable Bones: No acute osseous abnormality. IMPRESSION: No acute cardiopulmonary disease.
== END 2025-01-19 21:03 | disposition left against medical advice (07) ==
LOC: ER 14:19
DX: R07.89 Other chest pain (principal); F20.9 Schizophrenia, unspecified; J45.909 Unspecified asthma, uncomplicated; M06.9 Rheumatoid arthritis, unspecified
CPT/HCPCS: 71046; 93005; 99283

== ENCOUNTER 2025-01-19 21:04 | Emergency (ER) | payer MEDICAID ==
[~2025-01-19] VITALS: Ht 172.7 cm; Wt 66.9 kg
[2025-01-19 21:15] VITALS: BP 126/66; PULSE 103; RESP 18; O2SAT 98
--- NOTE | 2025-01-19 22:02 | Physician Documentation ---
History of Present Illness ~ Chief Complaint: Anxiety Stated Complaint: ANXIETY Time Seen by MD: 21:48 Primary Medical Doctor: DR. RAMIREZ [facility] HPI 34-year-old male presents to the ED requesting medical clearance to go to sober living. States that he does have some anxiety and a psychiatric history. However he denies any current SI or HI states he wants to get healthy and clean.. Denies any history of being hospitalized for withdrawals Day of Onset: Jan 19, 2025 Medication Reconciliation Allergies: Coded Allergies: mushroom (Unverified Allergy, Unknown, 01/12/22) onion (Unverified Allergy, Unknown, 01/12/22) Scheduled Lactobacillus Rhamnosus (Culturelle), 1 EACH PO BID Scheduled PRN Albuterol Sulfate (Proair Hfa), 2 PUFFS INH Q4HPRN PRN for wheezing ONDANSETRON ODT 4mg tablet (Ondansetron Odt), 1 TABLET PO Q6H PRN for nausea/vomiting Past Medical History Past Medical History: Asthma, Pneumonia, GI Bleed, Chronic Pain, Extremity Fracture, Rheumatoid Arthritis, MRSA Abscess, Schizophrenia Past Surgical History: orthopedic surgeries Alcohol Use: Sober Drug Use: marijuana, methamphetamine Lives In: Homeless, Other Occupation: disabled Review of Systems All Other Systems at this time: Reviewed and Negative ROS As stated above in the HPI, otherwise all systems are reviewed and negative. Physical Exam Vital Signs: Temperature: 99.2, Source: Oral, Heart Rate: 103, Respiratory Rate: 18, BP: 126/66, Pulse Oximetry: 98, Weight: 66.860 Oxygen Flow Rate: 0 Physical Exam General: Alert, no apparent distress. Respiratory: Lungs clear, no respiratory distress. Cardiovascular: Regular rate and rhythm, no murmurs. Gastrointestinal: Soft, nontender, nondistended. Bowels sounds present. Neurologic: Oriented x4. Psychiatric: Normal mood and affect. Skin: Normal color, warm and dry. No edema, no ecchymosis. Progress Results/Orders Results/Orders Vital Signs 01/19/25 01/19/25 21:15 22:03 Temp 99.2 99.2 Pulse 103 Resp 18 B/P (MAP) 126/66 Pulse Ox 98 O2 Flow Rate 0 Medical Decision Making Findings 44-year-old male does not present with any signs of acute withdrawal. He was actually quite pleasant and indicated that he was interested in in sober living. Do not see anything that would prevent him from being medically cleared. Differential Dx:Considerations: Include: Alcohol abuse, Anxiety, Bipolar disorder, Conversion disorder, Depression, Encephaloathy, Homicidal, Panic disorder, Personality disorder, Schizophrenia, Substance abuse, Suicidal, Other Departure Disposition: 01 HOME / SELF CARE / HOMELESS Impression: Primary Impression: Anxiety Additional Impression: General medical examination Condition: Stable Additional Instructions: You are medically cleared for sober living. good luck to you! Referrals: NO PRIMARY CARE PROVIDER (PCP) Signature Scribe Signature: r Attestation: The note accurately reflects work and decisions made by me.Ric Barragan NP 01/19/25 23:36 RIC GALDAMEZ NP Jan 19, 2025 22:02
[2025-01-19 22:03] VITALS: TEMP 99.2
== END 2025-01-19 22:10 | disposition home or self-care (01) ==
LOC: ER 21:04
DX: F41.9 Anxiety disorder, unspecified (principal); F20.9 Schizophrenia, unspecified; J45.909 Unspecified asthma, uncomplicated; M06.9 Rheumatoid arthritis, unspecified; F12.90 Cannabis use, unspecified, uncomplicated; F15.90 Other stimulant use, unspecified, uncomplicated
CPT/HCPCS: 99281